=== PATIENT | male | born 1995 | race Two or more races ===

== ENCOUNTER 2021-03-21 14:26 | Emergency (ER) | payer BC, MEDICAID, OTHER ==
[~2021-03-21] VITALS: Ht 172.7 cm; Wt 90.7 kg
[2021-03-21 18:06] VITALS: BP 115/73
[2021-03-21] MEDS ORDERED: cefTRIAXone SOD 1,000 MG VL IM ONE (18:45)
[2021-03-21] MEDS ORDERED: CLINDAMYCIN HCL 150 MG CAP PO ONE (18:45)
== END 2021-03-21 19:30 | disposition home or self-care (01) ==
LOC: ER 14:26
DX: S40.261A Insect bite (nonvenomous) of right shoulder, initial encounter (principal); L02.413 Cutaneous abscess of right upper limb; W57.XXXA Bitten or stung by nonvenomous insect and other nonvenomous arthropods, initial encounter; Y93.89 Activity, other specified; Y92.89 Other specified places as the place of occurrence of the external cause; Y99.8 Other external cause status
CPT/HCPCS: 96372; 99283; J0696